=== PATIENT | female | born 1955 | race American Indian/Alaskan Native ===

== ENCOUNTER 2016-11-03 05:58 | Day surgery (SDC) | payer BC ==
[2016-10-31 11:53] VITALS: BMI 28.0
[2016-11-03] MEDS ORDERED: Propofol 10 mg/ml Inj (20 ML) ONE ×2 (07:50→08:33)
[2016-11-03] MEDS ORDERED: Methylene Blue 10 mg/ml (1ml) Inj ONE (07:58)
[2016-11-03] MEDS ORDERED: Sodium Chloride 0.9% 1,000 ML IV SCH (09:00)
[2016-11-03 09:05] VITALS: TEMP 98
[2016-11-03 09:46] VITALS: BP 126/90; PULSE 56; RESP 18; O2SAT 99
== END 2016-11-03 10:40 | disposition home or self-care (01) ==
LOC: ENDO 05:58
PROVIDERS: ATTEND Internal Medicine Gastroenterology
DX: K51.90 Ulcerative colitis, unspecified, without complications (principal); K64.8 Other hemorrhoids; K62.89 Other specified diseases of anus and rectum; J45.909 Unspecified asthma, uncomplicated; K52.9 Noninfective gastroenteritis and colitis, unspecified
CPT/HCPCS: 45380; 86480; 88305; J2704; J7040 ×2; Q9968

== ENCOUNTER 2017-11-27 02:51 | Emergency (ER) | payer BC ==
[2017-11-27 03:05] VITALS: BMI 28.1
[2017-11-27 03:16] VITALS: BP 157/96; RESP 18; TEMP 98.6
[2017-11-27] MEDS ORDERED: Oxycodone/Acetaminophen 5/325 mg Tab PO STA (03:33)
--- NOTE | 2017-11-27 03:36 | ED PDOC ---
Arrival/HPI - General Chief Complaint: Back Pain Time Seen by Provider: 11/27/17 03:02 Historian: Patient - History of Present Illness Narrative History of Present Illness (Text): 11/27/17 03:36 62 year old female, whose past medical history includes sciatica, presents to the Emergency department complaining of right-sided lower back pain consistent with her sciatica. Patient reports that her daughter is wheel chair bound and when the wheel chair lost control and shifted, she tried to maintain it's balance thinking her daughter was going to fall triggering her sciatica. Patient has had this before, but could not move tonight due to the pain. Patient denies any fevers, chills, chest pain, shortness of breath, abdominal pain, nausea, vomiting, diarrhea, neck pain, urinary symptoms, headache, dizziness, or any other complaint. Symptom Onset: Gradual Symptom Course: Worsening Activities at Onset: Light Context: Home Past Medical History - Provider Review Nursing Documentation Reviewed: Yes - Tetanus Immunization Tetanus Immunization: >10 years Ago - Reproductive Menopause: Yes - Cardiac Hx Pacemaker: No - Pulmonary Hx Respiratory Disorders: (hayfever) Hx Asthma: Yes (bronchial asthma) - Neurological Hx Paralysis: No - Hematological/Oncological Hx Blood Transfusions: No Hx Blood Transfusion Reaction: No - Musculoskeletal/Rheumatological Hx Musculoskeletal Disorders: Yes (sciatica) - Psychiatric Hx Emotional Abuse: No Hx Physical Abuse: No Hx Substance Use: No - Surgical History Hx Orthopedic Surgery: Yes Other/Comment: Metal plate in left leg. bunyun surgeries - Anesthesia Hx Anesthesia: Yes Hx Anesthesia Reactions: No Hx Malignant Hyperthermia: No - Suicidal Assessment Feels Threatened In Home Enviroment: No Family/Social History - Physician Review Nursing Documentation Reviewed: Yes Family/Social History: No Known Family HX Smoking Status: Never Smoked Hx Alcohol Use: No Hx Substance Use: No Hx Substance Use Treatment: No Allergies/Home Meds Allergies/Adverse Reactions: Allergies No Known Allergies Allergy (Verified 07/09/15 08:52) Home Medications: Home Meds Medication Instructions Recorded Confirmed Albuterol Sulfate [Proair Hfa] 2 puff IH PRN PRN 07/29/15 11/03/16 Beclomethasone Dipropionate [Qvar] 2 puff IH PRN PRN 07/29/15 11/03/16 Hydrocortisone [Proctosol-Hc] 1 appl RC PRN PRN 07/29/15 11/03/16 Mesalamine [Lialda] 1.2 gm PO DAILY 10/31/16 11/03/16 Ergocalciferol (Vitamin D2) 400 unit PO 11/03/16 [Vitamin D] Fluticasone Propionate [Flonase] See Protocol BIJAL PRN PRN 11/03/16 11/03/16 Mesalamine [Canasa] 1,000 mg RC DAILY 11/03/16 11/03/16 Review of Systems - Physician Review All systems were reviewed & negative as marked: Yes - Review of Systems Constitutional: absent: Fevers, Other (chills) Respiratory: absent: SOB Cardiovascular: absent: Chest Pain Gastrointestinal: absent: Abdominal Pain, Diarrhea, Nausea, Vomiting Genitourinary Female: absent: Dysuria, Frequency, Hematuria Musculoskeletal: Back Pain ( right-sided lower back pain consistent with her sciatica. ). absent: Neck Pain Neurological: absent: Headache, Dizziness Physical Exam Vital Signs Reviewed: Yes Vital Signs Temp Pulse Resp BP Pulse Ox 11/27/17 03:15 98.6 F 69 18 157/96 H 99 Temperature: Afebrile Blood Pressure: Hypertensive Pulse: Regular Respiratory Rate: Normal Appearance: Positive for: Well-Appearing, Non-Toxic, Comfortable Pain Distress: None Mental Status: Positive for: Alert and Oriented X 3 - Systems Exam Head: Present: Atraumatic, Normocephalic Pupils: Present: PERRL Extroacular Muscles: Present: EOMI Conjunctiva: Present: Normal Mouth: Present: Moist Mucous Membranes Neck: Present: Normal Range of Motion Respiratory/Chest: Present: Clear to Auscultation, Good Air Exchange. No: Respiratory Distress, Accessory Muscle Use Cardiovascular: Present: Regular Rate and Rhythm, Normal S1, S2. No: Murmurs Abdomen: No: Tenderness, Distention, Peritoneal Signs Back: Present: Other (tenderness to the sciatic notch on the right) Upper Extremity: Present: Normal Inspection. No: Cyanosis, Edema Lower Extremity: Present: Normal Inspection. No: Edema Neurological: Present: GCS=15, CN II-XII Intact, Speech Normal Skin: Present: Warm, Dry, Normal Color. No: Rashes Psychiatric: Present: Alert, Oriented x 3, Normal Insight, Normal Concentration Medical Decision Making ED Course and Treatment: 11/27/17 03:30 Impression: 62 year old female presents complaining of right-sided lower back pain consistent with her sciatica. PE shows tenderness to the right sciatic notch. Plan: -- Motrin Tab, Percocet, Solu-medrol, Valium, Zofran ODT -- Reassess and disposition Progress Notes: 11/27/17 03:46 On re-evaluation, patient feels better and is in no acute distress. I have discussed the results and plan with the patient, who expresses understanding. Patient in agreement with plan to be discharged home. Patient is stable for discharge. Patient was instructed to follow up with physician or return if symptoms worsen or new concerning symptoms arise. - Medication Orders Current Medication Orders: Discontinued Medications Diazepam (Valium) 2 mg PO ONCE ONE PRN Reason: Protocol Stop: 11/27/17 03:32 Last Admin: 11/27/17 03:47 Dose: 2 mg Ibuprofen (Motrin Tab) 800 mg PO STAT STA Stop: 11/27/17 03:32 Last Admin: 11/27/17 03:50 Dose: 800 mg Methylprednisolone (Solu-Medrol) 125 mg IM STAT STA Stop: 11/27/17 03:32 Last Admin: 11/27/17 03:50 Dose: 125 mg IM Administration Charges Document 11/27/17 03:50 SS (Rec: 11/27/17 03:51 SS [id number]) Injection Site MAR Injection Site Right Vastus Lateralis Charges for Administration # of IM Administrations 1 Ondansetron HCl (Zofran Odt) 4 mg PO STAT STA Stop: 11/27/17 03:34 Last Admin: 11/27/17 03:49 Dose: 4 mg Oxycodone/Acetaminophen (Percocet 5/325 Mg Tab) 1 tab PO STAT STA Stop: 11/27/17 03:34 Last Admin: 11/27/17 03:49 Dose: 1 tab MAR Pain Assessment Document 11/27/17 03:49 SS (Rec: 11/27/17 03:50 SS [id number]) Pain Reassessment Is this a pain reassessment? No Presence of Pain Presence of Pain Yes - Scribe Statement The provider has reviewed the documentation as recorded by the Kimi Kuhn Provider Scribe Attestation: All medical record entries made by the Pedro Pabloibginger were at my direction and personally dictated by me. I have reviewed the chart and agree that the record accurately reflects my personal performance of the history, physical exam, medical decision making, and the department course for this patient. I have also personally directed, reviewed, and agree with the discharge instructions and disposition. Disposition/Present on Arrival - Present on Arrival Any Indicators Present on Arrival: No History of DVT/PE: No History of Uncontrolled Diabetes: No Urinary Catheter: No History of Decub. Ulcer: No History Surgical Site Infection Following: None - Disposition Have Diagnosis and Disposition been Completed?: Yes Diagnosis: Sciatica Disposition: HOME/ ROUTINE Disposition Time: 03:46 Patient Plan: Discharge Condition: GOOD Discharge Instructions (ExitCare): Sciatica (DC) Additional Instructions: Follow up with your doctor later this week. Jhony- Dr. Aubrey Angulo Prescriptions: Ibuprofen [Motrin Tab] 800 mg PO TID #30 tab Ondansetron ODT [Zofran ODT] 8 mg PO TID #30 odt oxyCODONE/Acetaminophen [Percocet 5/325 mg Tab] 1 ea PO QID #20 tab Forms: [facility] ([place]), WORK NOTE
[2017-11-27 04:31] VITALS: PULSE 70; O2SAT 98
== END 2017-11-27 04:30 | disposition home or self-care (01) ==
LOC: ED 02:51
DX: M54.30 Sciatica, unspecified side (principal)
CPT/HCPCS: 96372; 99283; J2930

== ENCOUNTER 2018-07-08 09:03 | Outpatient (CLI) | payer BC | END 2018-07-08 09:04 | disposition home or self-care (01) | LOC: RAD 09:04 ==

== ENCOUNTER 2018-09-06 13:00 | Outpatient (CLI) | payer BC | END 2018-09-06 13:01 | disposition home or self-care (01) | LOC: RAD 13:00 ==

== ENCOUNTER → 2018-09-27 | Day surgery (SDC) | payer BC ==
[~2018-09-27] MED LIST: Methylene Blue 10 mg/mL(10ml) IV ONE; Sodium Chloride 0.9% 1,000 ML IV SCH
[2018-09-27 07:49] VITALS: BMI 28.1
[2018-09-27 10:59] VITALS: BP 136/89; PULSE 74; RESP 16; TEMP 97.4; O2SAT 98
== END | disposition home or self-care (01) ==
LOC: ENDO 07:22
PROVIDERS: ATTEND Internal Medicine Gastroenterology
DX: K51.90 Ulcerative colitis, unspecified, without complications (principal); K64.1 Second degree hemorrhoids; J45.909 Unspecified asthma, uncomplicated; Z98.41 Cataract extraction status, right eye
CPT/HCPCS: 45380; 88305; J7030; J7040